=== PATIENT | female | born 1930 | race Caucasian/White ===

== ENCOUNTER 2021-12-28 09:13 | Inpatient (IN) ==
[2021-12-28] MEDS ORDERED: Magnesium Sulfate 2 gm BAG 2 GM/50 ML BAG IVPB ONE (09:35)
[2021-12-28] MEDS ORDERED: methylPREDNISolone SOD SUCC 125 mg 2 ML VIAL IV ONE (09:35)
[2021-12-28] MEDS ORDERED: Albuterol/Ipratropium NEB.SOL (2.5/0.5 MG) 3 ML NEB.SOLN INH ONE (09:35)
[2021-12-28 09:53] LABS: PCO2 Arterial 46 mmHg (35-45); PO2 Arterial 78 mmHg (80-100)
[2021-12-28 10:00] LABS: ABS Basophils 0.1 10^3/ul (0-0.2); ABS Lymphocytes 1.2 10^3/ul (1.0-4.8); ABS Monocytes 0.6 10^3/ul (0-0.8); ABS Neutrophils 6.1 10^3/ul (1.5-7.7); Eosinophil % 0.4 %; Hematocrit 35 % (35-47); Hemoglobin 11.3 g/dL (12.0-16.0); Lymphocyte % 14.5 %; Mean Corpuscular HGB Conc 33 g/dL (31-36); Mean Corpuscular Hemoglobin 32 pg (27-31); Mean Corpuscular Volume 98 fL (80-97); Mean Platelet Volume 7.8 fL (7.4-10.4); Platelet Count 256 10^3/uL (150-450); Red Blood Count 3.52 10^6 /uL (3.70-4.87); Red Cell Distribution Width 16 % (10-15)
[2021-12-28] MEDS ORDERED: Furosemide 20 mg/2 ml IV VIAL IV SLOW PU ONE (10:28)
[2021-12-28 10:51] LABS: Albumin 3.8 g/dL (3.2-5.2); Albumin/Globulin Ratio 1.7 (1-3); C Reactive Protein 18.45 mg/L (<8.01); Calcium 10.1 mg/dL (8.6-10.3); Globulin 2.2 g/dL (2-4); Potassium 4.7 mmol/L (3.5-5.0); Total Bilirubin 1.4 mg/dL (0.2-1.0); eGFR CKD-EPI 29.5 (>60)
[2021-12-28 10:53] LABS: Activated Partial Thrombo Time 25.4 seconds (26.0-38.0); INR 1.09 (0.89-1.11)
[2021-12-28 11:23] LABS: High Sensitivity Troponin 1 Hr 1444 pg/mL (<15)
[2021-12-28 12:35] LABS: Urine Appearance Clear; Urine Bilirubin Negative (Negative); Urine Blood Negative (Negative); Urine Color Yellow; Urine Glucose Negative (Negative); Urine Ketones Negative (Negative); Urine Nitrite Negative (Negative); Urine Protein Negative (Negative); Urine Specific Gravity 1.017 (1.002-1.030); Urine Urobilinogen Negative (Negative)
[2021-12-28 12:47] LABS: TSH Ultra Thyroid Stim Horm 0.56 mcIU/mL (0.34-5.60)
[2021-12-28 12:48] LABS: Free T3 2.2 pg/mL (2.5-3.9)
[2021-12-28 12:49] LABS: Free T4 2.28 ng/dL (0.61-1.12)
[2021-12-28] MEDS ORDERED: Albuterol/Ipratropium NEB.SOL (2.5/0.5 MG) 3 ML NEB.SOLN INH PRN (14:49)
[2021-12-28] MEDS: Enoxaparin 30 MG/0.3 ML SYR SUBCUT SCH (16:34)
[2021-12-28 17:15] LABS: High Sensitivity Troponin 3 Hr 1084 pg/mL (<15)
[2021-12-29 04:19] LABS: Hematocrit 29 % (35-47); Hemoglobin 9.4 g/dL (12.0-16.0); Mean Corpuscular HGB Conc 32 g/dL (31-36); Mean Corpuscular Hemoglobin 32 pg (27-31); Mean Corpuscular Volume 98 fL (80-97); Mean Platelet Volume 7.7 fL (7.4-10.4); Platelet Count 219 10^3/uL (150-450); Red Blood Count 2.99 10^6 /uL (3.70-4.87); Red Cell Distribution Width 16 % (10-15); White Blood Count 8.7 10^3/uL (3.5-10.8)
[2021-12-29 04:46] LABS: Calcium 9.2 mg/dL (8.6-10.3); Magnesium 2.5 mg/dL (1.9-2.7); Potassium 4.7 mmol/L (3.5-5.0); eGFR CKD-EPI 27.7 (>60)
[2021-12-29] MEDS: Aspirin EC 81 mg TAB.EC (enteric coated) PO SCH (08:13)
[2021-12-29] MEDS ORDERED: Furosemide 20 mg/2 ml IV VIAL IV ONE (09:19)
[2021-12-29] MEDS: Enoxaparin 30 MG/0.3 ML SYR SUBCUT SCH (16:14)
[2021-12-30 04:33] LABS: Hematocrit 31 % (35-47); Hemoglobin 10.4 g/dL (12.0-16.0); Mean Corpuscular HGB Conc 33 g/dL (31-36); Mean Corpuscular Hemoglobin 32 pg (27-31); Mean Corpuscular Volume 97 fL (80-97); Mean Platelet Volume 7.9 fL (7.4-10.4); Platelet Count 238 10^3/uL (150-450); Red Blood Count 3.21 10^6 /uL (3.70-4.87); Red Cell Distribution Width 16 % (10-15); White Blood Count 9.4 10^3/uL (3.5-10.8)
[2021-12-30 05:20] LABS: Calcium 8.8 mg/dL (8.6-10.3); Magnesium 2.1 mg/dL (1.9-2.7); Potassium 4.4 mmol/L (3.5-5.0); eGFR CKD-EPI 29.3 (>60)
[2021-12-30 05:50] LABS: Albumin 3.2 g/dL (3.2-5.2); Albumin/Globulin Ratio 1.7 (1-3); Direct Bilirubin 0.1 mg/dL (0.03-0.18); Globulin 1.9 g/dL (2-4); Indirect Bilirubin 0.8 mg/dL (0.3-1.0); Total Bilirubin 0.9 mg/dL (0.2-1.0); Total Protein 5.1 g/dL (6.4-8.9)
[2021-12-30] MEDS: Aspirin EC 81 mg TAB.EC (enteric coated) PO SCH (08:38)
[2021-12-30] MEDS: Enoxaparin 30 MG/0.3 ML SYR SUBCUT SCH (16:23)
[2021-12-30] MEDS ORDERED: Furosemide 20 mg/2 ml IV VIAL IV ONE (17:16)
[2021-12-31] MEDS ORDERED: Furosemide 20 mg/2 ml IV VIAL IV ONE ×2 (00:33→17:39)
[2021-12-31] MEDS: Aspirin EC 81 mg TAB.EC (enteric coated) PO SCH (10:30)
[2021-12-31 10:32] LABS: ABS Eosinophils 0.3 10^3/ul (0-0.6); ABS Lymphocytes 1.9 10^3/ul (1.0-4.8); ABS Monocytes 0.7 10^3/ul (0-0.8); ABS Neutrophils 5.1 10^3/ul (1.5-7.7); Hematocrit 38 % (35-47); Hemoglobin 12.1 g/dL (12.0-16.0); Lymphocyte % 23.2 %; Mean Corpuscular HGB Conc 32 g/dL (31-36); Mean Corpuscular Hemoglobin 32 pg (27-31); Mean Corpuscular Volume 98 fL (80-97); Platelet Count 260 10^3/uL (150-450); Red Blood Count 3.82 10^6 /uL (3.70-4.87); Red Cell Distribution Width 16 % (10-15); White Blood Count 8.1 10^3/uL (3.5-10.8)
[2021-12-31 10:56] LABS: Calcium 8.9 mg/dL (8.6-10.3); Potassium 3.9 mmol/L (3.5-5.0); eGFR CKD-EPI 29.7 (>60)
[2021-12-31] MEDS: SPIRIVA Respimat (tiotropium) 2.5 mcg/inh Inhaler INH SCH (11:41)
[2021-12-31] MEDS: Enoxaparin 30 MG/0.3 ML SYR SUBCUT SCH (18:04)
[2022-01-01 05:20] LABS: ABS Eosinophils 0.4 10^3/ul (0-0.6); ABS Lymphocytes 1.9 10^3/ul (1.0-4.8); ABS Monocytes 0.7 10^3/ul (0-0.8); ABS Neutrophils 3.7 10^3/ul (1.5-7.7); Eosinophil % 6.1 %; Hematocrit 35 % (35-47); Hemoglobin 11.4 g/dL (12.0-16.0); Lymphocyte % 28.5 %; Mean Corpuscular HGB Conc 32 g/dL (31-36); Mean Corpuscular Hemoglobin 32 pg (27-31); Mean Corpuscular Volume 99 fL (80-97); Mean Platelet Volume 8.3 fL (7.4-10.4); Platelet Count 246 10^3/uL (150-450); Red Blood Count 3.57 10^6 /uL (3.70-4.87); Red Cell Distribution Width 16 % (10-15); White Blood Count 6.8 10^3/uL (3.5-10.8)
[2022-01-01 05:35] LABS: Calcium 8.2 mg/dL (8.6-10.3); Potassium 4.1 mmol/L (3.5-5.0); eGFR CKD-EPI 31.1 (>60)
[2022-01-01] MEDS: SPIRIVA Respimat (tiotropium) 2.5 mcg/inh Inhaler INH SCH (07:22)
[2022-01-01] MEDS: Aspirin EC 81 mg TAB.EC (enteric coated) PO SCH (10:08)
[2022-01-01] MEDS: Enoxaparin 30 MG/0.3 ML SYR SUBCUT SCH (16:16)
[2022-01-02 06:49] LABS: ABS Basophils 0.1 10^3/ul (0-0.2); ABS Eosinophils 0.4 10^3/ul (0-0.6); ABS Lymphocytes 2.2 10^3/ul (1.0-4.8); ABS Monocytes 0.9 10^3/ul (0-0.8); ABS Neutrophils 4.9 10^3/ul (1.5-7.7); Eosinophil % 4.4 %; Hematocrit 35 % (35-47); Hemoglobin 11.5 g/dL (12.0-16.0); Mean Corpuscular HGB Conc 33 g/dL (31-36); Mean Corpuscular Hemoglobin 32 pg (27-31); Mean Corpuscular Volume 99 fL (80-97); Mean Platelet Volume 8.3 fL (7.4-10.4); Nucleated Red Blood Cells % 0.1; Platelet Count 236 10^3/uL (150-450); Red Blood Count 3.57 10^6 /uL (3.70-4.87); Red Cell Distribution Width 16 % (10-15); White Blood Count 8.5 10^3/uL (3.5-10.8)
[2022-01-02 07:12] LABS: Calcium 8.4 mg/dL (8.6-10.3); Magnesium 2.1 mg/dL (1.9-2.7); Potassium 4.6 mmol/L (3.5-5.0); eGFR CKD-EPI 27.9 (>60)
[2022-01-02] MEDS: SPIRIVA Respimat (tiotropium) 2.5 mcg/inh Inhaler INH SCH (07:22)
[2022-01-02] MEDS ORDERED: Furosemide 40 mg/4 ml IV VIAL IV SLOW PU ONE (07:59)
[2022-01-02] MEDS: Aspirin EC 81 mg TAB.EC (enteric coated) PO SCH (09:16)
[2022-01-02 16:43] LABS: Calcium 8.3 mg/dL (8.6-10.3); Magnesium 2.1 mg/dL (1.9-2.7); Potassium 4.1 mmol/L (3.5-5.0); eGFR CKD-EPI 29.7 (>60)
[2022-01-02] MEDS: Enoxaparin 30 MG/0.3 ML SYR SUBCUT SCH (17:26)
[2022-01-03] MEDS ORDERED: Furosemide 20 mg/2 ml IV VIAL IV ONE (07:00)
[2022-01-03] MEDS: SPIRIVA Respimat (tiotropium) 2.5 mcg/inh Inhaler INH SCH (07:04)
[2022-01-03] MEDS: Aspirin EC 81 mg TAB.EC (enteric coated) PO SCH (09:29)
[2022-01-03 11:26] LABS: ABS Basophils 0.1 10^3/ul (0-0.2); ABS Eosinophils 0.4 10^3/ul (0-0.6); ABS Lymphocytes 1.7 10^3/ul (1.0-4.8); ABS Monocytes 0.7 10^3/ul (0-0.8); ABS Neutrophils 4.8 10^3/ul (1.5-7.7); Eosinophil % 5.1 %; Hematocrit 36 % (35-47); Hemoglobin 11.7 g/dL (12.0-16.0); Lymphocyte % 22.3 %; Mean Corpuscular HGB Conc 33 g/dL (31-36); Mean Corpuscular Hemoglobin 32 pg (27-31); Mean Corpuscular Volume 98 fL (80-97); Mean Platelet Volume 8.5 fL (7.4-10.4); Platelet Count 299 10^3/uL (150-450); Red Blood Count 3.67 10^6 /uL (3.70-4.87); Red Cell Distribution Width 16 % (10-15); White Blood Count 7.6 10^3/uL (3.5-10.8)
[2022-01-03 11:58] LABS: Calcium 8.5 mg/dL (8.6-10.3); Potassium 4.3 mmol/L (3.5-5.0); eGFR CKD-EPI 31.6 (>60)
[2022-01-03] MEDS: Enoxaparin 30 MG/0.3 ML SYR SUBCUT SCH (17:04)
[2022-01-03] MEDS ORDERED: Potassium Chlor 20 meq TAB.ER PO ONE (18:31)
[2022-01-03] MEDS ORDERED: Lactated Ringers 1000 ml BAG 500 ML IV ONE (23:38)
[2022-01-04 06:15] LABS: Albumin 3.1 g/dL (3.2-5.2); Albumin/Globulin Ratio 1.7 (1-3); Calcium 7.9 mg/dL (8.6-10.3); Globulin 1.8 g/dL (2-4); Total Protein 4.9 g/dL (6.4-8.9); eGFR CKD-EPI 26.1 (>60)
[2022-01-04 06:52] LABS: ABS Eosinophils 0.3 10^3/ul (0-0.6); ABS Lymphocytes 2.5 10^3/ul (1.0-4.8); ABS Monocytes 0.8 10^3/ul (0-0.8); Eosinophil % 4.5 %; Hematocrit 30 % (35-47); Hemoglobin 9.9 g/dL (12.0-16.0); Lymphocyte % 32.4 %; Mean Corpuscular HGB Conc 34 g/dL (31-36); Mean Corpuscular Hemoglobin 32 pg (27-31); Mean Corpuscular Volume 96 fL (80-97); Mean Platelet Volume 8.5 fL (7.4-10.4); Nucleated Red Blood Cells % 0.1; Platelet Count 229 10^3/uL (150-450); Red Blood Count 3.06 10^6 /uL (3.70-4.87); Red Cell Distribution Width 15 % (10-15); White Blood Count 7.7 10^3/uL (3.5-10.8)
[2022-01-04] MEDS: SPIRIVA Respimat (tiotropium) 2.5 mcg/inh Inhaler INH SCH (07:55)
[2022-01-04] MEDS: Aspirin EC 81 mg TAB.EC (enteric coated) PO SCH (08:21)
[2022-01-04] MEDS: Enoxaparin 30 MG/0.3 ML SYR SUBCUT SCH (16:56)
[2022-01-05 06:46] LABS: ABS Basophils 0.1 10^3/ul (0-0.2); ABS Eosinophils 0.3 10^3/ul (0-0.6); ABS Lymphocytes 2.1 10^3/ul (1.0-4.8); ABS Monocytes 0.8 10^3/ul (0-0.8); ABS Neutrophils 3.4 10^3/ul (1.5-7.7); Eosinophil % 4.9 %; Hematocrit 30 % (35-47); Lymphocyte % 30.8 %; Mean Corpuscular HGB Conc 33 g/dL (31-36); Mean Corpuscular Hemoglobin 32 pg (27-31); Mean Corpuscular Volume 97 fL (80-97); Mean Platelet Volume 8.4 fL (7.4-10.4); Platelet Count 233 10^3/uL (150-450); Red Blood Count 3.11 10^6 /uL (3.70-4.87); Red Cell Distribution Width 15 % (10-15); White Blood Count 6.7 10^3/uL (3.5-10.8)
[2022-01-05 06:55] LABS: Calcium 8.1 mg/dL (8.6-10.3)
[2022-01-05 06:56] LABS: Potassium 5.1 mmol/L (3.5-5.0)
[2022-01-05 07:01] LABS: eGFR CKD-EPI 30.9 (>60)
[2022-01-05] MEDS: SPIRIVA Respimat (tiotropium) 2.5 mcg/inh Inhaler INH SCH (08:15)
[2022-01-05] MEDS: Aspirin EC 81 mg TAB.EC (enteric coated) PO SCH (10:27)
[2022-01-05] MEDS ORDERED: Furosemide 40 mg/4 ml IV VIAL IV SLOW PU ONE (14:09)
[2022-01-05] MEDS: Enoxaparin 30 MG/0.3 ML SYR SUBCUT SCH (17:31)
[2022-01-05 17:53] LABS: Urine Appearance Clear; Urine Bilirubin Negative (Negative); Urine Blood 1+ (Negative); Urine Color Yellow; Urine Glucose Negative (Negative); Urine Ketones Negative (Negative); Urine Nitrite Negative (Negative); Urine Protein Negative (Negative); Urine Urobilinogen Negative (Negative)
[2022-01-05 18:06] LABS: Urine Bacteria Absent (Absent); Urine Red Blood Cell Trace(0-2/hpf) (Absent); Urine Squamous Epithelial Cell Present (Absent); Urine White Blood Cell Trace(0-5/hpf) (Absent)
[2022-01-05 19:25] LABS: High Sensitivity Troponin 1 Hr 36 pg/mL (<15)
[2022-01-06 05:53] LABS: ABS Basophils 0.1 10^3/ul (0-0.2); ABS Eosinophils 0.4 10^3/ul (0-0.6); ABS Lymphocytes 1.9 10^3/ul (1.0-4.8); ABS Monocytes 0.8 10^3/ul (0-0.8); ABS Neutrophils 3.3 10^3/ul (1.5-7.7); Eosinophil % 5.9 %; Hematocrit 28 % (35-47); Hemoglobin 9.2 g/dL (12.0-16.0); Lymphocyte % 29.4 %; Mean Corpuscular HGB Conc 33 g/dL (31-36); Mean Corpuscular Hemoglobin 32 pg (27-31); Mean Corpuscular Volume 98 fL (80-97); Mean Platelet Volume 8.5 fL (7.4-10.4); Platelet Count 230 10^3/uL (150-450); Red Blood Count 2.86 10^6 /uL (3.70-4.87); Red Cell Distribution Width 16 % (10-15); White Blood Count 6.3 10^3/uL (3.5-10.8)
[2022-01-06 06:30] LABS: Calcium 8.3 mg/dL (8.6-10.3); Magnesium 2.1 mg/dL (1.9-2.7); Phosphorus 4.1 mg/dL (2.5-5.0); Potassium 5.1 mmol/L (3.5-5.0); eGFR CKD-EPI 29.3 (>60)
[2022-01-06] MEDS ORDERED: Furosemide 20 mg/2 ml IV VIAL IV SLOW PU ONE (07:20)
[2022-01-06] MEDS: SPIRIVA Respimat (tiotropium) 2.5 mcg/inh Inhaler INH SCH (07:21)
[2022-01-06] MEDS: Aspirin EC 81 mg TAB.EC (enteric coated) PO SCH (10:07)
[2022-01-06] MEDS: Enoxaparin 30 MG/0.3 ML SYR SUBCUT SCH (16:45)
[2022-01-07 07:05] LABS: ABS Basophils 0.1 10^3/ul (0-0.2); ABS Eosinophils 0.4 10^3/ul (0-0.6); ABS Lymphocytes 1.9 10^3/ul (1.0-4.8); ABS Monocytes 0.7 10^3/ul (0-0.8); ABS Neutrophils 3.1 10^3/ul (1.5-7.7); Eosinophil % 5.8 %; Hematocrit 30 % (35-47); Hemoglobin 10.3 g/dL (12.0-16.0); Lymphocyte % 30.5 %; Mean Corpuscular HGB Conc 34 g/dL (31-36); Mean Corpuscular Hemoglobin 33 pg (27-31); Mean Corpuscular Volume 98 fL (80-97); Mean Platelet Volume 8.9 fL (7.4-10.4); Platelet Count 230 10^3/uL (150-450); Red Blood Count 3.12 10^6 /uL (3.70-4.87); Red Cell Distribution Width 15 % (10-15); White Blood Count 6.1 10^3/uL (3.5-10.8)
[2022-01-07 07:26] LABS: Calcium 8.6 mg/dL (8.6-10.3); Magnesium 2.1 mg/dL (1.9-2.7); Potassium 4.6 mmol/L (3.5-5.0); eGFR CKD-EPI 33.1 (>60)
[2022-01-07] MEDS: SPIRIVA Respimat (tiotropium) 2.5 mcg/inh Inhaler INH SCH (07:36)
[2022-01-07] MEDS: Aspirin EC 81 mg TAB.EC (enteric coated) PO SCH (10:17)
== END 2022-01-07 14:00 | disposition home or self-care (01) | DRG 280 ==
LOC: ED 09:13 → SUATTDRO 13:26 → ICU 13:26 → MED 12-30 21:43
PROVIDERS: ADMIT Nurse Practitioner; ATTEND Internal Medicine